=== PATIENT | male | born 1955 | race Caucasian/White ===

== ENCOUNTER 2018-01-27 11:34 | Inpatient (IN) | payer OTHER ==
[~2018-01-27] VITALS: Ht 188 cm; Wt 115.9 kg
[~2018-01-27 11:34] MED LIST: ALBU6.7H INH; ALPR-624 PO; ATOR20TA PO; DABI150C PO; LEVO175T2 PO
[2018-01-27] MEDS ORDERED: ondansetron 4mg rapidly disintigrating tab PO ONE (12:00)
[2018-01-27] MEDS ORDERED: normal saline 1000ML IV soln IVB ONE (12:35)
[2018-01-27] MEDS ORDERED: diazepam 5mg tablet PO ONE (12:35)
[2018-01-27] MEDS ORDERED: meclizine 12.5mg tablet PO ONE (12:35)
[2018-01-27] MEDS ORDERED: morphine 4 MG/ML inj SYRINge IV ONE (12:45)
[2018-01-27 12:54] LABS: BASOPHILS % (AUTO) 0.2 % (0-1); EOSINOPHILS % (AUTO) 0.6 % (0-6); HEMATOCRIT 52.2 % (42.0-52.0); HEMOGLOBIN 17.6 g/dl (14.0-17.9); LYMPHOCYTES # (AUTO) 0.8 X10'3 (1.1-4.8); LYMPHOCYTES % (AUTO) 14.6 % (21-51); MEAN CORPUSCULAR HEMOGLOBIN 33.1 PG (27.0-31.0); MEAN CORPUSCULAR HGB CONC 33.8 % (33.0-36.5); MEAN CORPUSCULAR VOLUME 98.1 FL (78-98); MEAN PLATELET VOLUME 7.8 FL (7.4-10.4); MONOCYTES # (AUTO) 0.5 X10'3 (0-0.9); MONOCYTES % (AUTO) 8.1 % (2-12); NEUTROPHILS # (AUTO) 4.4 X10'3 (1.8-7.7); NEUTROPHILS % (AUTO) 76.5 % (42-75); PLATELET COUNT 191 X10'3 (140-440); RED BLOOD COUNT 5.32 X10'6 (4.70-6.10); RED CELL DISTRIBUTION WIDTH 13.2 % (11.5-14.5); WHITE BLOOD COUNT 5.8 X10'3 (4.5-11.0)
[2018-01-27 13:05] LABS: PARTIAL THROMBOPLASTIN TIME 25 SECONDS (22-32); PROTHROMBIN TIME 10.6 SECONDS (9.0-12.0)
[2018-01-27 13:08] LABS: ALANINE AMINOTRANSFERASE 49 U/L (12-78); ALBUMIN 3.9 G/DL (3.4-5.0); ALBUMIN/GLOBULIN RATIO 1.2 (1.1-1.5); ALKALINE PHOSPHATASE 58 IU/L (46-116); ANION GAP 10 (8-16); ASPARTATE AMINO TRANSFERASE 33 U/L (10-37); BILIRUBIN,TOTAL 0.8 MG/DL (0.1-1.0); BLOOD UREA NITROGEN 9 MG/DL (7-18); BUN/CREATININE RATIO 8.4 (5.4-32.0); CHLORIDE 105 MMOL/L (99-107); CREATININE 1.07 MG/DL (0.60-1.10); GLUCOSE 111 MG/DL (70-104); POTASSIUM 3.8 MMOL/L (3.5-5.1); SODIUM 141 MMOL/L (135-145); TOTAL CARBON DIOXIDE 25.7 MMOL/L (24-32); TOTAL PROTEIN 7.2 G/DL (6.4-8.2); eGFR 70 ML/MIN
[2018-01-27] MEDS ORDERED: MIDAZolam 5mg/ml 2ml vial IV ONE (13:15)
[2018-01-27] MEDS ORDERED: LEVO200T8 PO (13:39)
[2018-01-27] MEDS ORDERED: TEST200V10 IM (13:43)
[2018-01-27] MEDS ORDERED: ketorolac tromethamine 15mg/ml inj. IV ONE (15:55)
[2018-01-27] MEDS ORDERED: metoclopramide 5 mg/ml inj IV ONE (17:40)
[2018-01-27] MEDS ORDERED: HYDROcodone/acetaminophen 10/325mg tab PO PRN (18:10)
[2018-01-27] MEDS ORDERED: magnesium 2GM in 50ml NS 50 ML IV PRN (18:10)
[2018-01-27] MEDS ORDERED: magnesium hydroxide 30ml (MOM) UD suspension PO PRN (18:10)
[2018-01-27] MEDS ORDERED: magnesium 4gm in 100ml NS 100 ML IV PRN (18:10)
[2018-01-27] MEDS ORDERED: potassium Cl 20 mEq SR tablet PO PRN ×2 (18:10)
[2018-01-27] MEDS ORDERED: ondansetron/PF 4mg/2ml inj IV PRN (18:10)
[2018-01-27] MEDS ORDERED: magnesium Cl slow-release 64mg tablet PO PRN (18:10)
[2018-01-27] MEDS ORDERED: potassium Cl 40MEQ/NS 500ml 500 ML IV PRN ×2 (18:10)
[2018-01-27] MEDS ORDERED: mag hydrox/Alum hydrox/simeth 30ml oral suspension PO PRN (18:10)
[2018-01-27] MEDS ORDERED: meclizine 12.5mg tablet PO PRN (18:15)
[2018-01-27] MEDS ORDERED: thiamine 100mg tablet PO ONE (18:20)
[2018-01-27] MEDS: normal saline 1000ml 1,000 ML IV SCH ×2 (18:40→23:14)
[2018-01-27] MEDS: heparin, porcine 5000 units/ml vial SQ SCH (20:27)
[2018-01-27 22:15] VITALS: BP 161/89
[2018-01-27 23:00] VITALS: BP 143/82
[2018-01-27] MEDS: LORazepam 0.5 MG tablet PO PRN (23:01)
[2018-01-28] VITALS: BP 155/80
[2018-01-28 05:42] LABS: BASOPHILS % (AUTO) 0.5 % (0-1); EOSINOPHILS # (AUTO) 0.1 X10'3 (0-0.9); EOSINOPHILS % (AUTO) 1.6 % (0-6); HEMATOCRIT 48.9 % (42.0-52.0); HEMOGLOBIN 16.5 g/dl (14.0-17.9); LYMPHOCYTES # (AUTO) 1.6 X10'3 (1.1-4.8); MEAN CORPUSCULAR HEMOGLOBIN 33.6 PG (27.0-31.0); MEAN CORPUSCULAR HGB CONC 33.7 % (33.0-36.5); MEAN CORPUSCULAR VOLUME 99.7 FL (78-98); MEAN PLATELET VOLUME 8.4 FL (7.4-10.4); MONOCYTES # (AUTO) 0.6 X10'3 (0-0.9); MONOCYTES % (AUTO) 10.4 % (2-12); NEUTROPHILS # (AUTO) 3.7 X10'3 (1.8-7.7); NEUTROPHILS % (AUTO) 61.5 % (42-75); PLATELET COUNT 190 X10'3 (140-440); RED BLOOD COUNT 4.91 X10'6 (4.70-6.10); RED CELL DISTRIBUTION WIDTH 13.3 % (11.5-14.5); WHITE BLOOD COUNT 6.1 X10'3 (4.5-11.0)
[2018-01-28 06:01] LABS: ALANINE AMINOTRANSFERASE 40 U/L (12-78); ALBUMIN 3.5 G/DL (3.4-5.0); ALBUMIN/GLOBULIN RATIO 1.2 (1.1-1.5); ALKALINE PHOSPHATASE 52 IU/L (46-116); ANION GAP 8 (8-16); ASPARTATE AMINO TRANSFERASE 25 U/L (10-37); BILIRUBIN,TOTAL 0.8 MG/DL (0.1-1.0); BLOOD UREA NITROGEN 8 MG/DL (7-18); BUN/CREATININE RATIO 8.1 (5.4-32.0); CALCIUM 9.1 MG/DL (8.5-10.1); CHLORIDE 107 MMOL/L (99-107); CREATININE 0.99 MG/DL (0.60-1.10); GLUCOSE 89 MG/DL (70-104); MAGNESIUM 1.9 MG/DL (1.5-2.4); POTASSIUM 3.8 MMOL/L (3.5-5.1); SODIUM 144 MMOL/L (135-145); TOTAL CARBON DIOXIDE 29.2 MMOL/L (24-32); TOTAL PROTEIN 6.5 G/DL (6.4-8.2); eGFR 76 ML/MIN
[2018-01-28 07:00] VITALS: BP 129/71
[2018-01-28] MEDS: K and/or MAG REPLACEMENT MC SCH (08:00)
[2018-01-28] MEDS: levoTHYROXINE 100mcg tablet PO SCH (08:23)
[2018-01-28] MEDS: folic acid 1mg tablet PO SCH (08:23)
[2018-01-28] MEDS: atorvastatin 20mg tablet PO SCH (08:23)
[2018-01-28] MEDS: normal saline 1000ml 1,000 ML IV SCH ×2 (08:24→22:45)
[2018-01-28] MEDS: heparin, porcine 5000 units/ml vial SQ SCH ×2 (08:24→20:43)
[2018-01-28 11:48] VITALS: BP 132/82
[2018-01-28] MEDS: acetaminophen 325mg tablet PO PRN ×2 (13:11→20:49)
[2018-01-28 20:00] VITALS: BP 149/86
[2018-01-28] MEDS: LORazepam 0.5 MG tablet PO PRN (20:49)
[2018-01-28] MEDS ORDERED: temazepam 15mg capsule PO PRN (21:45)
[2018-01-29] VITALS: BP 149/88
[2018-01-29 05:22] LABS: BASOPHILS % (AUTO) 0.5 % (0-1); EOSINOPHILS # (AUTO) 0.1 X10'3 (0-0.9); EOSINOPHILS % (AUTO) 1.7 % (0-6); HEMATOCRIT 49.5 % (42.0-52.0); HEMOGLOBIN 16.5 g/dl (14.0-17.9); LYMPHOCYTES # (AUTO) 1.7 X10'3 (1.1-4.8); LYMPHOCYTES % (AUTO) 30.7 % (21-51); MEAN CORPUSCULAR HEMOGLOBIN 33.3 PG (27.0-31.0); MEAN CORPUSCULAR HGB CONC 33.3 % (33.0-36.5); MEAN CORPUSCULAR VOLUME 99.9 FL (78-98); MEAN PLATELET VOLUME 8.3 FL (7.4-10.4); MONOCYTES # (AUTO) 0.6 X10'3 (0-0.9); MONOCYTES % (AUTO) 10.7 % (2-12); NEUTROPHILS # (AUTO) 3.1 X10'3 (1.8-7.7); NEUTROPHILS % (AUTO) 56.4 % (42-75); PLATELET COUNT 194 X10'3 (140-440); RED BLOOD COUNT 4.95 X10'6 (4.70-6.10); RED CELL DISTRIBUTION WIDTH 13.4 % (11.5-14.5); WHITE BLOOD COUNT 5.6 X10'3 (4.5-11.0)
[2018-01-29 06:01] LABS: ALANINE AMINOTRANSFERASE 36 U/L (12-78); ALBUMIN 3.6 G/DL (3.4-5.0); ALBUMIN/GLOBULIN RATIO 1.2 (1.1-1.5); ALKALINE PHOSPHATASE 52 IU/L (46-116); ANION GAP 9 (8-16); ASPARTATE AMINO TRANSFERASE 30 U/L (10-37); BILIRUBIN,TOTAL 0.7 MG/DL (0.1-1.0); BLOOD UREA NITROGEN 10 MG/DL (7-18); BUN/CREATININE RATIO 9.2 (5.4-32.0); CHLORIDE 108 MMOL/L (99-107); CREATININE 1.09 MG/DL (0.60-1.10); GLUCOSE 84 MG/DL (70-104); POTASSIUM 3.9 MMOL/L (3.5-5.1); SODIUM 145 MMOL/L (135-145); TOTAL CARBON DIOXIDE 28.3 MMOL/L (24-32); TOTAL PROTEIN 6.7 G/DL (6.4-8.2); eGFR 68 ML/MIN
[2018-01-29] MEDS: K and/or MAG REPLACEMENT MC SCH (06:29)
[2018-01-29] MEDS: heparin, porcine 5000 units/ml vial SQ SCH (07:32)
[2018-01-29] MEDS: atorvastatin 20mg tablet PO SCH (07:32)
[2018-01-29] MEDS: folic acid 1mg tablet PO SCH (07:32)
[2018-01-29] MEDS: levoTHYROXINE 100mcg tablet PO SCH (07:32)
[2018-01-29 07:34] VITALS: BP 156/84
[2018-01-29 10:48] VITALS: BP 161/86
[2018-01-29] MEDS ORDERED: MECL12.584 PO (10:59)
[2018-01-29] MEDS ORDERED: THI100T PO (10:59)
== END 2018-01-29 12:30 | disposition home or self-care (01) | DRG 149 ==
LOC: ER 11:34 → ED HOLD 18:07 → SUR 3N 22:15
PROVIDERS: ADMIT Internal Medicine; ATTEND Internal Medicine
DX: H81.10 Benign paroxysmal vertigo, unspecified ear (principal); I48.91 Unspecified atrial fibrillation; E03.9 Hypothyroidism, unspecified; E78.00 Pure hypercholesterolemia, unspecified; E86.0 Dehydration; F10.10 Alcohol abuse, uncomplicated; Z86.73 Personal history of transient ischemic attack (TIA), and cerebral infarction without residual deficits
CPT/HCPCS: 36415; 70544; 70551; 80053; 83735; 84443; 85025; 85610; 85730; 87070; 96374; 96375; 97140; 97161; 97530; 99285; J1644; J1885; J2250; J2270; J2765; J7030; J8597

== ENCOUNTER 2022-09-03 17:58 | Emergency (ER) | payer OTHER, MEDICARE ==
[~2022-09-03] VITALS: Ht 188 cm; Wt 75.0 kg
[~2022-09-03 17:58] MED LIST changes: -ALBU6.7H INH; -ALPR-624 PO; +ANAS1TAB10 PO; +APIX5TAB3 PO; -ATOR20TA PO; +ATOR40TA PO; -DABI150C PO; +DIAZ10TA PO; -LEVO175T2 PO; +LEVO200T8 PO; +TADA5TAB2 PO; +TEST200V33 IM
[2022-09-03 18:00] VITALS: BP 132/82
== END 2022-09-03 18:22 ==
LOC: ER 17:58
DX: S60.312A Abrasion of left thumb, initial encounter (principal); E78.00 Pure hypercholesterolemia, unspecified; E03.9 Hypothyroidism, unspecified; X58.XXXA Exposure to other specified factors, initial encounter; Y93.89 Activity, other specified; Y92.89 Other specified places as the place of occurrence of the external cause; Y99.8 Other external cause status
CPT/HCPCS: 82948; 99283

== ENCOUNTER 2023-03-09 20:08 | Emergency (ER) | payer OTHER, MEDICARE ==
[~2023-03-09] VITALS: Ht 188 cm; Wt 113.6 kg
[2023-03-09] MEDS ORDERED: morphine 4 MG/ML inj SYRINge IV ONE ×2 (20:20→20:50)
[2023-03-09] MEDS ORDERED: ondansetron/PF 4mg/2ml inj IV ONE (20:20)
[2023-03-09] MEDS ORDERED: iohexol 300mg/ml 100ml inj. ONE (21:03)
[2023-03-09 21:33] VITALS: BP 134/87
[2023-03-09] MEDS ORDERED: LORazepam 2 mg/ml vial IV ONE (21:50)
[2023-03-09] MEDS ORDERED: fentaNYL/PF 50MCG/1 ML 2ML syringe IV ONE (21:50)
[2023-03-09] MEDS ORDERED: HYDROcodone/acetaminophen 5mg/325mg tablet PO ONE (22:25)
[2023-03-09] MEDS ORDERED: HYDROcodone/acetaminophen 10/325mg tab PO ONE (23:15)
--- NOTE | 2023-03-09 23:17 | NUR ---
Patient ambulated with little t/o no assistance to the bathroom and back to his room. After ambulated pt stated pain was but was able to stand, sit and walk.
[2023-03-09] MEDS ORDERED: HYDR-3973 PO (23:36)
== END 2023-03-09 23:58 | disposition home or self-care (01) ==
LOC: ER 20:09
DX: S20.211A Contusion of right front wall of thorax, initial encounter (principal); R91.1 Solitary pulmonary nodule; K76.0 Fatty (change of) liver, not elsewhere classified; R59.1 Generalized enlarged lymph nodes; E78.00 Pure hypercholesterolemia, unspecified; E03.9 Hypothyroidism, unspecified; W19.XXXA Unspecified fall, initial encounter; Y93.89 Activity, other specified; Y92.89 Other specified places as the place of occurrence of the external cause; Y99.8 Other external cause status
CPT/HCPCS: 70450; 71045; 71260; 74177; 93005; 96374; 96375; 96376; 99285; J2060; J2270; J2405; J3010; J3490; Q9967